=== PATIENT | male | born 1950 | race Hispanic/Latino ===

== ENCOUNTER → 2022-04-16 | Outpatient (CLI) | payer OTHER | LOC: MRI 07:47 | PROVIDERS: ATTEND Internal Medicine | DX: M75.111 Incomplete rotator cuff tear or rupture of right shoulder, not specified as traumatic (principal) ==

== ENCOUNTER 2022-05-13 09:24 | Inpatient (IN) | payer OTHER ==
[~2022-05-13] VITALS: Ht 157.5 cm; Wt 86.2 kg
[2022-05-13] MEDS ORDERED: FAMOTIDINE 20 MG/2 ML VIAL IV STA (09:45)
[2022-05-13] MEDS ORDERED: DIPHENHYDRAMINE HCL INJ 50 MG/ML VIAL IV ONE (09:45)
[2022-05-13] MEDS ORDERED: DEXAMETHASONE SOD PHOS 10 MG/1 ML VIAL IV ONE (09:45)
[2022-05-13] MEDS ORDERED: Doxycycline IV 100 MG in SODIUM CHLORIDE 0.9% 100 ML IV STA (09:54)
[2022-05-13 09:59] LABS: BASOPHILS % 0.1 % (0.0-1.0); EOSINOPHILS # (AUTO) 0.1 (0.0-0.4); EOSINOPHILS % 0.3 % (0.0-6.0); HEMATOCRIT 36.4 % (38.2-49.6); HEMOGLOBIN 11.9 g/dL (14.0-18.0); LYMPHOCYTES # (AUTO) 1.7 (1.0-3.2); LYMPHOCYTES % 11.4 % (18.0-39.1); MEAN CORPUSCULAR HEMOGLOBIN 33.5 pg (28-32); MEAN CORPUSCULAR HGB CONC 32.7 g/dL (31-35); MEAN CORPUSCULAR VOLUME 102.5 fL (81-99); MONOCYTES # (AUTO) 1.5 (0.2-0.8); MONOCYTES % 9.6 % (4.4-11.3); NEUTROPHILS # (AUTO) 11.8 (2.1-6.9); NEUTROPHILS % 77.5 % (38.7-80.0); PLATELET COUNT 281 x10e3/uL (140-360); RED BLOOD COUNT 3.55 x10e6/uL (4.3-5.7); RED CELL DISTRIBUTION WIDTH 13.5 % (11.7-14.4)
[2022-05-13] MEDS ORDERED: SODIUM CHLORIDE 0.9% 1000ML 1,000 ML IV SCH (10:00)
[2022-05-13] MEDS ORDERED: SODIUM CHLORIDE 0.9% 1000ML 1,000 ML ONE (10:11)
[2022-05-13 10:23] LABS: ALBUMIN 3.1 g/dL (3.5-5.0); ALBUMIN/GLOBULIN RATIO 0.8 (0.8-2.0); CALCIUM 9.4 mg/dL (8.4-10.2); CREATININE, SERUM 1.05 mg/dL (0.72-1.25)
[2022-05-13] MEDS ORDERED: Vancomycin IV 1 GM in SODIUM CHLORIDE 0.9% 250ML 250 ML IV ONE (10:30)
[2022-05-13] MEDS ORDERED: TRIAMTERENE-HCTZ1 EA PO (12:10)
[2022-05-13] MEDS ORDERED: MELOXICAM7.5 MG PO (12:10)
[2022-05-13] MEDS ORDERED: LOSARTAN POTAS100 MG PO (12:10)
[2022-05-13] MEDS ORDERED: METOPROLOL SUCC25 MG PO (12:10)
[2022-05-13] MEDS ORDERED: IOPAMIDOL 370 MG/ML 100 ML INFUS..BTL INJ ONE (12:18)
[2022-05-13] MEDS ORDERED: HYDRALAZINE HCL 20 MG/ML VIAL IV STA (12:34)
[2022-05-13] MEDS ORDERED: Morphine 4mg INJECTION 4 MG/ML INJ IV PRN ×2 (13:15→18:00)
[2022-05-13] MEDS ORDERED: ONDANSETRON HCL INJ 2MG/ML 2ML 2 MG/ML VIAL IV PRN (13:15)
[2022-05-13] MEDS: SODIUM CHLORIDE 0.9% 1000ML 1,000 ML IV SCH ×2 (13:27→16:37)
[2022-05-13 15:50] VITALS: BP 144/90
[2022-05-13] MEDS: ACYCLOVIR SODIUM 750 MG in SODIUM CHLORIDE 0.9% 250ML 250 ML IV SCH (16:37)
[2022-05-13 17:51] VITALS: BP 147/83
[2022-05-13] MEDS ORDERED: HYDROCODONE/APAP 10MG-325MG TAB PO PRN (18:00)
[2022-05-13] MEDS ORDERED: ACETAMINOPHEN 325 MG TAB PO PRN (18:00)
[2022-05-13] MEDS ORDERED: HYDRALAZINE HCL 20 MG/ML VIAL IV PRN (18:00)
[2022-05-13] MEDS: Clindamycin INJ 300 MG/50 ML 50 ML IV SCH (18:59)
[2022-05-13 20:00] VITALS: BP 122/69
[2022-05-14] VITALS (8 sets, daily range): BP systolic 107–159; BP diastolic 53–86
[2022-05-14] MEDS: Clindamycin INJ 300 MG/50 ML 50 ML IV SCH ×3 (02:43→17:00)
[2022-05-14] MEDS: ACYCLOVIR SODIUM 750 MG in SODIUM CHLORIDE 0.9% 250ML 250 ML IV SCH ×4 (02:47→20:50)
[2022-05-14 05:00] LABS: BASOPHILS # (AUTO) 0.1 (0.0-0.1); BASOPHILS % 0.3 % (0.0-1.0); EOSINOPHILS # (AUTO) 0.1 (0.0-0.4); EOSINOPHILS % 0.7 % (0.0-6.0); HEMATOCRIT 32.4 % (38.2-49.6); HEMOGLOBIN 11.4 g/dL (14.0-18.0); LYMPHOCYTES # (AUTO) 1.5 (1.0-3.2); LYMPHOCYTES % 10.3 % (18.0-39.1); MEAN CORPUSCULAR HEMOGLOBIN 34.1 pg (28-32); MEAN CORPUSCULAR HGB CONC 35.2 g/dL (31-35); MONOCYTES # (AUTO) 1.5 (0.2-0.8); MONOCYTES % 10.5 % (4.4-11.3); NEUTROPHILS # (AUTO) 11.2 (2.1-6.9); NEUTROPHILS % 77.2 % (38.7-80.0); PLATELET COUNT 248 x10e3/uL (140-360); RED BLOOD COUNT 3.34 x10e6/uL (4.3-5.7); RED CELL DISTRIBUTION WIDTH 14.1 % (11.7-14.4)
[2022-05-14 05:18] LABS: ANION GAP 13.6 mmol/L (8-16); CALCIUM 8.5 mg/dL (8.4-10.2); CREATININE, SERUM 0.85 mg/dL (0.72-1.25); POTASSIUM 3.6 mmol/L (3.5-5.1)
[2022-05-14] MEDS: METOPROLOL SUCCINATE 25 MG TAB XL PO SCH (09:42)
[2022-05-14] MEDS: SENNA-S TABLET PO SCH ×2 (09:42→16:52)
[2022-05-14] MEDS: LACTOBACILLUS ACIDOPHILUS CAPSULE PO SCH ×2 (09:43→16:52)
[2022-05-14] MEDS ORDERED: ONDANSETRON HCL 4 MG ORAL DISINTEGRATING TAB PO PRN (14:00)
[2022-05-15] VITALS (8 sets, daily range): BP systolic 136–159; BP diastolic 68–93
[2022-05-15] MEDS: Clindamycin INJ 300 MG/50 ML 50 ML IV SCH ×2 (02:12→09:53)
[2022-05-15 04:56] LABS: BASOPHILS % 0.2 % (0.0-1.0); EOSINOPHILS # (AUTO) 0.1 (0.0-0.4); EOSINOPHILS % 0.5 % (0.0-6.0); HEMATOCRIT 33.8 % (38.2-49.6); HEMOGLOBIN 11.2 g/dL (14.0-18.0); LYMPHOCYTES # (AUTO) 1.1 (1.0-3.2); LYMPHOCYTES % 8.5 % (18.0-39.1); MEAN CORPUSCULAR HEMOGLOBIN 33.2 pg (28-32); MEAN CORPUSCULAR HGB CONC 33.1 g/dL (31-35); MEAN CORPUSCULAR VOLUME 100.3 fL (81-99); MONOCYTES # (AUTO) 1.4 (0.2-0.8); MONOCYTES % 11.1 % (4.4-11.3); NEUTROPHILS # (AUTO) 9.9 (2.1-6.9); NEUTROPHILS % 78.9 % (38.7-80.0); PLATELET COUNT 256 x10e3/uL (140-360); RED BLOOD COUNT 3.37 x10e6/uL (4.3-5.7); RED CELL DISTRIBUTION WIDTH 13.4 % (11.7-14.4)
[2022-05-15 05:20] LABS: ANION GAP 15.3 mmol/L (8-16); CALCIUM 8.7 mg/dL (8.4-10.2); CREATININE, SERUM 0.76 mg/dL (0.72-1.25); POTASSIUM 3.3 mmol/L (3.5-5.1)
[2022-05-15] MEDS ORDERED: KETOROLAC TROMETHAMINE 30 MG/ML VIAL IV PRN (09:15)
[2022-05-15] MEDS ORDERED: PANTOPRAZOLE SOD 40 MG TABEC PO ONE (09:45)
[2022-05-15] MEDS ORDERED: POTASSIUM CHLORIDE 10MEQ EA PO ONE (09:45)
[2022-05-15] MEDS: SENNA-S TABLET PO SCH ×2 (09:48→17:42)
[2022-05-15] MEDS: LACTOBACILLUS ACIDOPHILUS CAPSULE PO SCH ×2 (09:48→17:42)
[2022-05-15] MEDS: METOPROLOL SUCCINATE 25 MG TAB XL PO SCH (09:49)
[2022-05-15] MEDS: CELECOXIB 100 MG CAP PO SCH ×2 (09:52→17:42)
[2022-05-15] MEDS: ACYCLOVIR SODIUM 750 MG in SODIUM CHLORIDE 0.9% 250ML 250 ML IV SCH (09:53)
[2022-05-15] MEDS: Vancomycin IV 1 GM in SODIUM CHLORIDE 0.9% 250ML 250 ML IV SCH (13:55)
[2022-05-15] MEDS: MEROPENEM 1 GM in SODIUM CHLORIDE 0.9% 100 ML IV SCH ×2 (13:56→22:17)
[2022-05-16] VITALS (7 sets, daily range): BP systolic 137–158; BP diastolic 73–83
[2022-05-16] MEDS: Vancomycin IV 1 GM in SODIUM CHLORIDE 0.9% 250ML 250 ML IV SCH ×2 (01:31→13:36)
[2022-05-16] MEDS: MEROPENEM 1 GM in SODIUM CHLORIDE 0.9% 100 ML IV SCH ×3 (05:28→21:03)
[2022-05-16 05:48] LABS: BASOPHILS % 0.3 % (0.0-1.0); EOSINOPHILS # (AUTO) 0.2 (0.0-0.4); EOSINOPHILS % 2.4 % (0.0-6.0); HEMATOCRIT 34.7 % (38.2-49.6); HEMOGLOBIN 11.2 g/dL (14.0-18.0); LYMPHOCYTES # (AUTO) 0.8 (1.0-3.2); LYMPHOCYTES % 9.1 % (18.0-39.1); MEAN CORPUSCULAR HGB CONC 32.3 g/dL (31-35); MEAN CORPUSCULAR VOLUME 102.4 fL (81-99); MONOCYTES # (AUTO) 0.9 (0.2-0.8); MONOCYTES % 9.8 % (4.4-11.3); NEUTROPHILS # (AUTO) 6.7 (2.1-6.9); NEUTROPHILS % 77.3 % (38.7-80.0); PLATELET COUNT 241 x10e3/uL (140-360); RED BLOOD COUNT 3.39 x10e6/uL (4.3-5.7); RED CELL DISTRIBUTION WIDTH 13.9 % (11.7-14.4)
[2022-05-16] MEDS: PANTOPRAZOLE SOD 40 MG TABEC PO SCH (09:18)
[2022-05-16] MEDS: LACTOBACILLUS ACIDOPHILUS CAPSULE PO SCH ×2 (09:19→16:43)
[2022-05-16] MEDS: CELECOXIB 100 MG CAP PO SCH ×2 (09:19→16:43)
[2022-05-16] MEDS: SENNA-S TABLET PO SCH ×2 (09:19→16:43)
[2022-05-16] MEDS: METOPROLOL SUCCINATE 25 MG TAB XL PO SCH (09:21)
[2022-05-16] MEDS ORDERED: POTASSIUM CHLORIDE 10MEQ EA PO ONE ×2 (10:45→14:00)
[2022-05-17] VITALS (7 sets, daily range): BP systolic 143–156; BP diastolic 62–90
[2022-05-17] MEDS: Vancomycin IV 1 GM in SODIUM CHLORIDE 0.9% 250ML 250 ML IV SCH ×2 (02:18→13:30)
[2022-05-17] MEDS: MEROPENEM 1 GM in SODIUM CHLORIDE 0.9% 100 ML IV SCH ×3 (05:13→20:12)
[2022-05-17] MEDS: METOPROLOL SUCCINATE 25 MG TAB XL PO SCH (08:37)
[2022-05-17] MEDS: LACTOBACILLUS ACIDOPHILUS CAPSULE PO SCH ×2 (08:37→16:36)
[2022-05-17] MEDS: CELECOXIB 100 MG CAP PO SCH ×2 (08:37→16:36)
[2022-05-17] MEDS: PANTOPRAZOLE SOD 40 MG TABEC PO SCH (08:37)
[2022-05-17] MEDS: SENNA-S TABLET PO SCH ×2 (08:37→16:36)
[2022-05-18] VITALS (7 sets, daily range): BP systolic 148–178; BP diastolic 78–90
[2022-05-18] MEDS: Vancomycin IV 1 GM in SODIUM CHLORIDE 0.9% 250ML 250 ML IV SCH (01:16)
[2022-05-18] MEDS: MEROPENEM 1 GM in SODIUM CHLORIDE 0.9% 100 ML IV SCH ×3 (05:27→21:05)
[2022-05-18 05:42] LABS: BASOPHILS % 0.1 % (0.0-1.0); EOSINOPHILS # (AUTO) 0.1 (0.0-0.4); EOSINOPHILS % 0.6 % (0.0-6.0); HEMATOCRIT 32.8 % (38.2-49.6); HEMOGLOBIN 10.7 g/dL (14.0-18.0); LYMPHOCYTES # (AUTO) 0.8 (1.0-3.2); LYMPHOCYTES % 7.5 % (18.0-39.1); MEAN CORPUSCULAR HEMOGLOBIN 32.8 pg (28-32); MEAN CORPUSCULAR HGB CONC 32.6 g/dL (31-35); MEAN CORPUSCULAR VOLUME 100.6 fL (81-99); MONOCYTES % 9.2 % (4.4-11.3); NEUTROPHILS # (AUTO) 9.1 (2.1-6.9); NEUTROPHILS % 81.6 % (38.7-80.0); PLATELET COUNT 321 x10e3/uL (140-360); RED BLOOD COUNT 3.26 x10e6/uL (4.3-5.7); RED CELL DISTRIBUTION WIDTH 13.2 % (11.7-14.4)
[2022-05-18 06:02] LABS: ANION GAP 15.3 mmol/L (8-16); CALCIUM 8.9 mg/dL (8.4-10.2); CREATININE, SERUM 0.83 mg/dL (0.72-1.25); POTASSIUM 4.3 mmol/L (3.5-5.1)
[2022-05-18] MEDS: CELECOXIB 100 MG CAP PO SCH ×2 (07:53→16:00)
[2022-05-18] MEDS: SENNA-S TABLET PO SCH ×2 (07:53→16:00)
[2022-05-18] MEDS: LACTOBACILLUS ACIDOPHILUS CAPSULE PO SCH ×2 (07:53→16:00)
[2022-05-18] MEDS: PANTOPRAZOLE SOD 40 MG TABEC PO SCH (07:53)
[2022-05-18] MEDS: METOPROLOL SUCCINATE 25 MG TAB XL PO SCH (08:08)
[2022-05-18] MEDS ORDERED: KETOROLAC TROMETHAMINE 30 MG/ML VIAL IV PRN (09:45)
[2022-05-18] MEDS ORDERED: HYDROCODONE/APAP 10MG-325MG TAB PO PRN (10:00)
[2022-05-18] MEDS: Vancomycin IV 1.25 GM in SODIUM CHLORIDE 0.9% 250ML 250 ML IV SCH (17:36)
[2022-05-18] MEDS: NIFEDIPINE CR 30 MG TAB PO ONE ×2 (18:00→18:03)
[2022-05-18] MEDS ORDERED: NIFEDIPINE CR 30 MG TAB PO ONE (18:00)
[2022-05-19] VITALS (8 sets, daily range): BP systolic 118–161; BP diastolic 69–82
[2022-05-19] MEDS: MEROPENEM 1 GM in SODIUM CHLORIDE 0.9% 100 ML IV SCH ×3 (05:18→21:18)
[2022-05-19] MEDS: Vancomycin IV 1.25 GM in SODIUM CHLORIDE 0.9% 250ML 250 ML IV SCH ×2 (05:21→17:08)
[2022-05-19 06:16] LABS: BASOPHILS % 0.4 % (0.0-1.0); EOSINOPHILS # (AUTO) 0.4 (0.0-0.4); EOSINOPHILS % 3.4 % (0.0-6.0); HEMATOCRIT 33.2 % (38.2-49.6); HEMOGLOBIN 11.3 g/dL (14.0-18.0); LYMPHOCYTES # (AUTO) 1.2 (1.0-3.2); LYMPHOCYTES % 11.4 % (18.0-39.1); MEAN CORPUSCULAR HEMOGLOBIN 33.1 pg (28-32); MEAN CORPUSCULAR VOLUME 97.4 fL (81-99); MONOCYTES # (AUTO) 1.2 (0.2-0.8); MONOCYTES % 11.1 % (4.4-11.3); NEUTROPHILS # (AUTO) 7.3 (2.1-6.9); NEUTROPHILS % 70.1 % (38.7-80.0); PLATELET COUNT 394 x10e3/uL (140-360); RED BLOOD COUNT 3.41 x10e6/uL (4.3-5.7); RED CELL DISTRIBUTION WIDTH 13.7 % (11.7-14.4)
[2022-05-19] MEDS: NIFEDIPINE CR 30 MG TAB PO SCH (06:20)
[2022-05-19] MEDS: CELECOXIB 100 MG CAP PO SCH ×2 (08:07→16:14)
[2022-05-19] MEDS: PANTOPRAZOLE SOD 40 MG TABEC PO SCH (08:08)
[2022-05-19] MEDS: LACTOBACILLUS ACIDOPHILUS CAPSULE PO SCH ×2 (08:08→16:14)
[2022-05-19] MEDS: METOPROLOL SUCCINATE 25 MG TAB XL PO SCH (08:09)
[2022-05-19] MEDS: SENNA-S TABLET PO SCH ×2 (08:09→16:14)
[2022-05-20] VITALS (7 sets, daily range): BP systolic 134–157; BP diastolic 73–84
[2022-05-20] MEDS: Vancomycin IV 1.25 GM in SODIUM CHLORIDE 0.9% 250ML 250 ML IV SCH (04:36)
[2022-05-20] MEDS: MEROPENEM 1 GM in SODIUM CHLORIDE 0.9% 100 ML IV SCH ×3 (06:20→21:41)
[2022-05-20] MEDS: NIFEDIPINE CR 30 MG TAB PO SCH (06:20)
[2022-05-20] MEDS: METOPROLOL SUCCINATE 25 MG TAB XL PO SCH (08:33)
[2022-05-20] MEDS: SENNA-S TABLET PO SCH ×2 (08:33→16:13)
[2022-05-20] MEDS: CELECOXIB 100 MG CAP PO SCH ×2 (08:33→16:13)
[2022-05-20] MEDS: PANTOPRAZOLE SOD 40 MG TABEC PO SCH (08:33)
[2022-05-20] MEDS: LACTOBACILLUS ACIDOPHILUS CAPSULE PO SCH ×2 (08:33→16:13)
[2022-05-20] MEDS ORDERED: DOXYCYCLINE HYCLATE TABLET 100 MG TAB PO ONE (11:45)
[2022-05-20] MEDS ORDERED: CIPROFLOXACIN 500 MG TAB PO SCH (11:45)
[2022-05-20] MEDS: TRIAMTERENE/HCTZ 37.5-25 MG TAB PO SCH (13:00)
[2022-05-21 00:58] VITALS: BP 144/81
[2022-05-21 05:10] VITALS: BP 151/86
[2022-05-21] MEDS: NIFEDIPINE CR 30 MG TAB PO SCH (05:21)
[2022-05-21] MEDS: MEROPENEM 1 GM in SODIUM CHLORIDE 0.9% 100 ML IV SCH (05:21)
[2022-05-21 08:00] VITALS: BP 151/82
[2022-05-21 08:13] VITALS: BP 151/82
[2022-05-21] MEDS: PANTOPRAZOLE SOD 40 MG TABEC PO SCH (08:29)
[2022-05-21] MEDS: CELECOXIB 100 MG CAP PO SCH (08:29)
[2022-05-21] MEDS: LACTOBACILLUS ACIDOPHILUS CAPSULE PO SCH (08:29)
[2022-05-21] MEDS: TRIAMTERENE/HCTZ 37.5-25 MG TAB PO SCH (08:29)
[2022-05-21] MEDS: METOPROLOL SUCCINATE 25 MG TAB XL PO SCH (08:30)
[2022-05-21] MEDS: SENNA-S TABLET PO SCH (08:30)
[2022-05-21 08:50] LABS: BASOPHILS # (AUTO) 0.1 (0.0-0.1); BASOPHILS % 0.6 % (0.0-1.0); EOSINOPHILS # (AUTO) 0.3 (0.0-0.4); EOSINOPHILS % 2.6 % (0.0-6.0); HEMATOCRIT 33.1 % (38.2-49.6); HEMOGLOBIN 10.5 g/dL (14.0-18.0); LYMPHOCYTES # (AUTO) 1.1 (1.0-3.2); LYMPHOCYTES % 11.3 % (18.0-39.1); MEAN CORPUSCULAR HEMOGLOBIN 32.6 pg (28-32); MEAN CORPUSCULAR HGB CONC 31.7 g/dL (31-35); MEAN CORPUSCULAR VOLUME 102.8 fL (81-99); MONOCYTES # (AUTO) 0.8 (0.2-0.8); MONOCYTES % 8.5 % (4.4-11.3); NEUTROPHILS # (AUTO) 7.2 (2.1-6.9); NEUTROPHILS % 74.3 % (38.7-80.0); PLATELET COUNT 389 x10e3/uL (140-360); RED BLOOD COUNT 3.22 x10e6/uL (4.3-5.7); RED CELL DISTRIBUTION WIDTH 13.4 % (11.7-14.4)
[2022-05-21 09:39] LABS: ANION GAP 15.8 mmol/L (8-16); CALCIUM 8.6 mg/dL (8.4-10.2); CREATININE, SERUM 0.8 mg/dL (0.72-1.25); POTASSIUM 4.8 mmol/L (3.5-5.1)
[2022-05-21] MEDS ORDERED: CIPRO500 MG PO (10:20)
[2022-05-21] MEDS ORDERED: DOXYCYCLINE HY100 MG PO (10:20)
[2022-05-21] MEDS ORDERED: tylenol #3 PO (10:21)
== END 2022-05-21 11:16 | disposition home or self-care (01) | DRG 603 ==
LOC: ER 09:29 → ERHOLD 13:09 → MED/SURG3 14:36
PROVIDERS: ADMIT Internal Medicine; ATTEND Internal Medicine
DX: L03.113 Cellulitis of right upper limb (principal); M65.831 Other synovitis and tenosynovitis, right forearm; I10 Essential (primary) hypertension; E11.9 Type 2 diabetes mellitus without complications; E78.5 Hyperlipidemia, unspecified; E66.9 Obesity, unspecified; Z68.34 Body mass index [BMI] 34.0-34.9, adult; Z20.822 Contact with and (suspected) exposure to COVID-19
CPT/HCPCS: 0223U; 36415; 73201; 80048; 80053; 80202; 82948; 83605; 85025; 85651; 86140; 87040; 93971; 94799; 99284; J0360; J0692; J0696; J2185; J2270; J3370; J7030; J7050; Q9967

== ENCOUNTER 2024-06-03 11:19 | Inpatient (IN) | payer MEDICARE ==
[~2024-06-03] VITALS: Ht 157.5 cm; Wt 91.6 kg
[~2024-06-03 11:19] MED LIST: CIPRO500 MG PO; DOXYCYCLINE HY100 MG PO; LOSARTAN POTAS100 MG PO; MELOXICAM7.5 MG PO; METOPROLOL SUCC25 MG PO; TRIAMTERENE-HCTZ1 EA PO; tylenol #3 PO
[2024-06-03 11:24] VITALS: TEMP 98.7
[2024-06-03 13:40] LABS: BASOPHILS % 0.3 % (0.0-1.0); EOSINOPHILS % 0.1 % (0.0-6.0); HEMATOCRIT 43.5 % (38.2-49.6); HEMOGLOBIN 14.2 g/dL (14.0-18.0); LYMPHOCYTES # (AUTO) 0.5 (1.0-3.2); LYMPHOCYTES % 3.4 % (18.0-39.1); MEAN CORPUSCULAR HGB CONC 32.6 g/dL (31-35); MONOCYTES # (AUTO) 0.8 (0.2-0.8); MONOCYTES % 5.8 % (4.4-11.3); NEUTROPHILS # (AUTO) 12.8 (2.1-6.9); NEUTROPHILS % 88.8 % (38.7-80.0); PLATELET COUNT 288 x10e3/uL (140-360); RED BLOOD COUNT 4.44 x10e6/uL (4.3-5.7); RED CELL DISTRIBUTION WIDTH 14.6 % (11.7-14.4); WHITE BLOOD COUNT 14.38 x10e3/uL (4.8-10.8)
[2024-06-03] MEDS ORDERED: ONDANSETRON HCL INJ 2MG/ML 2ML 2 MG/ML VIAL IV PRN (14:00)
[2024-06-03] MEDS ORDERED: Morphine 2mg Syringe 2 MG/ML SYR IV PRN (14:00)
[2024-06-03 14:02] LABS: INR 0.87; PROTHROMBIN TIME 12.4 seconds (11.9-14.5)
[2024-06-03 14:03] LABS: PARTIAL THROMBOPLASTIN TIME 27.9 seconds (23.8-35.5)
[2024-06-03 14:10] LABS: ALBUMIN 3.6 g/dL (3.5-5.0); ALBUMIN/GLOBULIN RATIO 1.1 (0.8-2.0); ANION GAP 16.5 mmol/L (8-16); BILIRUBIN,TOTAL 0.5 mg/dL (0.2-1.2); CALCIUM 9.7 mg/dL (8.4-10.2); CREATININE, SERUM 0.73 mg/dL (0.72-1.25); POTASSIUM 4.5 mmol/L (3.5-5.1); TOTAL PROTEIN 6.9 g/dL (6.5-8.1)
[2024-06-03 14:15] LABS: TROPONIN I 0.011 ng/mL (0-0.300)
[2024-06-03 15:48] LABS: CLARITY,URINE CLEAR (CLEAR); COLOR,URINE YELLOW (YELLOW)
[2024-06-03 15:49] LABS: BILIRUBIN,URINE NEGATIVE (NEGATIVE); GLUCOSE, URINE 500 (NEGATIVE); KETONES,URINE NEGATIVE (NEGATIVE); LEUKOCYTE ESTERASE ,URINE SMALL (NEGATIVE); NITRITE,URINE NEGATIVE (NEGATIVE); PH,URINE 7.5 (5 - 7); PROTEIN,URINE DIPSTICK NEGATIVE (NEGATIVE); URINE UROBILINOGEN 0.2 mg/dL (0.2 - 1)
[2024-06-03 15:51] LABS: BACTERIA,URINE FEW /HPF; EPITHELIAL CELLS,URINE FEW /LPF; RBC,URINE 0-5 /HPF (0-5); WBC,URINE (MAN) 0-5 /HPF (0-5)
[2024-06-03 16:12] VITALS: PULSE 79; RESP 16
[2024-06-03 17:19] VITALS: BP 152/90; PULSE 68; RESP 16; TEMP 97.8; O2SAT 97
[2024-06-03 18:29] VITALS: BP 152/90; PULSE 68; RESP 16; TEMP 97.8; O2SAT 97
[2024-06-03] MEDS: SODIUM CHLORIDE 0.9% 1000ML 1,000 ML IV ONE (20:05)
[2024-06-03 20:08] VITALS: BP 170/88; PULSE 66; RESP 21; TEMP 98.4; O2SAT 97
[2024-06-03] MEDS ORDERED: METOPROLOL SUCC50 MG PO (20:15)
[2024-06-03] MEDS ORDERED: JARDIANCE10 MG PO (20:15)
[2024-06-03] MEDS ORDERED: ENTRESTO 49 MG1 EACH PO (20:15)
[2024-06-03] MEDS ORDERED: ATORVASTATIN CA40 MG PO (20:15)
[2024-06-03] MEDS ORDERED: FINASTERIDE5 MG PO (20:15)
[2024-06-03] MEDS ORDERED: TAMSULOSIN PO (20:15)
[2024-06-03] MEDS ORDERED: prednisolone OS (20:17)
[2024-06-03 21:15] LABS: TROPONIN I 0.011 ng/mL (0-0.300)
[2024-06-03 21:28] VITALS: BP 170/88; PULSE 66; RESP 21; TEMP 98.4; O2SAT 97
[2024-06-04] VITALS (10 sets, daily range): BP systolic 134–157; BP diastolic 74–90; PULSE 58–74; RESP 15–20; TEMP 97.5–98.8; O2SAT 95–97
[2024-06-04] MEDS ORDERED: ROCURONIUM BROMIDE 1 ML IV ONE (07:25)
[2024-06-04] MEDS ORDERED: LIDOCAINE HCL 2% LOCAL INJ 5 ML SDV VIAL INJ ONE (07:25)
[2024-06-04] MEDS ORDERED: FENTANYL CITRATE/PF 100MCG/2 ML INJ ONE (07:25)
[2024-06-04] MEDS ORDERED: MIDAZOLAM HCL 2 MG/2 ML VIAL ONE (07:27)
[2024-06-04] MEDS ORDERED: PROPOFOL IV EMULSION 10 MG/ML 20 ML VIAL ONE (07:27)
[2024-06-04] MEDS ORDERED: ONDANSETRON HCL INJ 2MG/ML 2ML 2 MG/ML VIAL ONE (07:47)
[2024-06-04] MEDS ORDERED: METOCLOPRAMIDE HCL 10 MG/2ML VIAL ONE (07:47)
[2024-06-04] MEDS ORDERED: DEXAMETHASONE SOD PHOS INJ 4 MG/ML SDV ONE (07:47)
[2024-06-04] MEDS ORDERED: KETOROLAC TROMETHAMINE 30 MG/ML VIAL ONE (07:47)
[2024-06-04] MEDS ORDERED: EPHEDRINE SULFATE INJ 50 MG/ML VIAL ONE (07:54)
[2024-06-04] MEDS ORDERED: SUCCINYLCHOLINE CHLORIDE 20 MG/ML 10ML VIAL ONE (07:58)
[2024-06-04] MEDS ORDERED: BUPIVACAINE/EPI 0.5% 30ML SDV-MPF INJ ONE (07:59)
[2024-06-04] MEDS ORDERED: HYDROMORPHONE 2MG/ML ONE (08:45)
[2024-06-04] MEDS ORDERED: ACETAMINOPHEN 325 MG TAB PO PRN (09:00)
[2024-06-04] MEDS ORDERED: HYDRALAZINE HCL 20 MG/ML VIAL IV PRN (09:00)
[2024-06-04] MEDS: EMPAGLIFLOZIN 10 MG TABLET PO SCH (12:06)
[2024-06-04] MEDS: METOPROLOL SUCCINATE 50 MG TAB XL PO SCH (12:06)
[2024-06-04] MEDS: FINASTERIDE 5 MG TAB PO SCH (12:06)
[2024-06-04 13:33] LABS: BASOPHILS % 0.1 % (0.0-1.0); HEMATOCRIT 39.2 % (38.2-49.6); HEMOGLOBIN 13.1 g/dL (14.0-18.0); LYMPHOCYTES # (AUTO) 0.4 (1.0-3.2); LYMPHOCYTES % 2.3 % (18.0-39.1); MEAN CORPUSCULAR HEMOGLOBIN 32.7 pg (28-32); MEAN CORPUSCULAR HGB CONC 33.4 g/dL (31-35); MEAN CORPUSCULAR VOLUME 97.8 fL (81-99); MONOCYTES # (AUTO) 0.7 (0.2-0.8); MONOCYTES % 4.5 % (4.4-11.3); NEUTROPHILS % 91.9 % (38.7-80.0); PLATELET COUNT 221 x10e3/uL (140-360); RED BLOOD COUNT 4.01 x10e6/uL (4.3-5.7); RED CELL DISTRIBUTION WIDTH 14.8 % (11.7-14.4); WHITE BLOOD COUNT 16.35 x10e3/uL (4.8-10.8)
[2024-06-04] MEDS: CEFAZOLIN SODIUM 2 GM in SODIUM CHLORIDE 0.9% 100 ML IV SCH (13:37)
[2024-06-04 13:49] LABS: ANION GAP 15.6 mmol/L (8-16); CALCIUM 9.2 mg/dL (8.4-10.2); CREATININE, SERUM 0.87 mg/dL (0.72-1.25); POTASSIUM 4.6 mmol/L (3.5-5.1)
[2024-06-04 14:10] LABS: TROPONIN I 0.017 ng/mL (0-0.300)
[2024-06-04] MEDS: ENOXAPARIN SOD INJ 40 MG/0.4 ML SYR SC SCH (17:31)
[2024-06-04] MEDS: ATORVASTATIN 40 MG TAB PO SCH (21:04)
[2024-06-05] VITALS (9 sets, daily range): BP systolic 107–166; BP diastolic 65–91; PULSE 57–67; RESP 18; TEMP 97.5–98.5; O2SAT 92–97
[2024-06-05 05:25] LABS: BASOPHILS % 0.3 % (0.0-1.0); EOSINOPHILS % 0.4 % (0.0-6.0); HEMOGLOBIN 11.4 g/dL (14.0-18.0); LYMPHOCYTES % 9.1 % (18.0-39.1); MEAN CORPUSCULAR HEMOGLOBIN 32.3 pg (28-32); MEAN CORPUSCULAR HGB CONC 33.5 g/dL (31-35); MEAN CORPUSCULAR VOLUME 96.3 fL (81-99); MONOCYTES # (AUTO) 1.1 (0.2-0.8); MONOCYTES % 10.4 % (4.4-11.3); NEUTROPHILS # (AUTO) 8.4 (2.1-6.9); NEUTROPHILS % 78.4 % (38.7-80.0); PLATELET COUNT 220 x10e3/uL (140-360); RED BLOOD COUNT 3.53 x10e6/uL (4.3-5.7); RED CELL DISTRIBUTION WIDTH 14.9 % (11.7-14.4); WHITE BLOOD COUNT 10.66 x10e3/uL (4.8-10.8)
[2024-06-05 05:52] LABS: ANION GAP 13.1 mmol/L (8-16); CREATININE, SERUM 0.71 mg/dL (0.72-1.25); POTASSIUM 4.1 mmol/L (3.5-5.1)
[2024-06-05 06:06] LABS: MAGNESIUM 2.1 MG/DL (1.3-2.1); PHOSPHORUS 2.9 MG/DL (2.3-4.7)
[2024-06-05] MEDS: SACUBITRIL49MG/VALSARTAN51MG 1 EACH TABLET PO SCH (09:58)
[2024-06-05] MEDS: PANTOPRAZOLE SOD 40 MG TABEC PO SCH (09:58)
[2024-06-05] MEDS: FUROSEMIDE INJ 10 MG/ML 4 ML VIAL IV ONE (09:58)
[2024-06-05] MEDS: Morphine 4mg INJECTION 4 MG/ML INJ IV PRN (11:07)
[2024-06-06] VITALS (10 sets, daily range): BP systolic 109–152; BP diastolic 62–87; PULSE 56–71; RESP 18–20; TEMP 97.7–98.3; O2SAT 93–99
[2024-06-06 05:10] LABS: BASOPHILS % 0.3 % (0.0-1.0); EOSINOPHILS % 0.3 % (0.0-6.0); HEMATOCRIT 35.3 % (38.2-49.6); HEMOGLOBIN 11.7 g/dL (14.0-18.0); LYMPHOCYTES # (AUTO) 0.8 (1.0-3.2); LYMPHOCYTES % 6.7 % (18.0-39.1); MEAN CORPUSCULAR HEMOGLOBIN 32.3 pg (28-32); MEAN CORPUSCULAR HGB CONC 33.1 g/dL (31-35); MEAN CORPUSCULAR VOLUME 97.5 fL (81-99); MONOCYTES # (AUTO) 0.9 (0.2-0.8); MONOCYTES % 7.6 % (4.4-11.3); NEUTROPHILS # (AUTO) 9.6 (2.1-6.9); NEUTROPHILS % 83.2 % (38.7-80.0); PLATELET COUNT 213 x10e3/uL (140-360); RED BLOOD COUNT 3.62 x10e6/uL (4.3-5.7); RED CELL DISTRIBUTION WIDTH 14.5 % (11.7-14.4); WHITE BLOOD COUNT 11.56 x10e3/uL (4.8-10.8)
[2024-06-06 05:30] LABS: ANION GAP 13.9 mmol/L (8-16); CALCIUM 8.8 mg/dL (8.4-10.2); CREATININE, SERUM 0.73 mg/dL (0.72-1.25); POTASSIUM 3.9 mmol/L (3.5-5.1)
[2024-06-06] MEDS: HYDROCODONE/APAP 10MG-325MG TAB PO PRN (09:40)
[2024-06-06] MEDS ORDERED: MAGNESIUM HYDROXIDE 30 ML UDC PO PRN (19:45)
[2024-06-06] MEDS: BISACODYL 10 MG SUPP PR ONE (21:57)
[2024-06-07] VITALS (8 sets, daily range): BP systolic 111–158; BP diastolic 62–86; PULSE 60–74; RESP 18–22; TEMP 97.5–98.3; O2SAT 93–98
[2024-06-07] MEDS ORDERED: BISACODYL 5 MG TAB EC PO PRN (07:45)
[2024-06-07] MEDS ORDERED: ONDANSETRON HCL 4 MG ORAL DISINTEGRATING TAB PO PRN (07:45)
[2024-06-07] MEDS ORDERED: HYDRALAZINE HCL 25 MG TAB PO PRN (07:45)
[2024-06-07] MEDS: SENNA-S TABLET PO SCH (09:01)
[2024-06-07] MEDS: PREGABALIN 25 MG CAP PO SCH (09:02)
[2024-06-08] VITALS (10 sets, daily range): BP systolic 105–151; BP diastolic 62–84; PULSE 61–78; RESP 18–20; TEMP 97.2–98.6; O2SAT 96–100
[2024-06-09] VITALS (9 sets, daily range): BP systolic 101–171; BP diastolic 62–89; PULSE 62–83; RESP 18–20; TEMP 97.1–98.6; O2SAT 95–100
[2024-06-09 05:40] LABS: BASOPHILS % 0.5 % (0.0-1.0); EOSINOPHILS # (AUTO) 0.1 (0.0-0.4); EOSINOPHILS % 1.2 % (0.0-6.0); HEMATOCRIT 34.1 % (38.2-49.6); HEMOGLOBIN 10.9 g/dL (14.0-18.0); LYMPHOCYTES # (AUTO) 1.3 (1.0-3.2); LYMPHOCYTES % 14.8 % (18.0-39.1); MEAN CORPUSCULAR HEMOGLOBIN 31.9 pg (28-32); MEAN CORPUSCULAR VOLUME 99.7 fL (81-99); MONOCYTES # (AUTO) 0.7 (0.2-0.8); MONOCYTES % 8.4 % (4.4-11.3); NEUTROPHILS # (AUTO) 5.9 (2.1-6.9); NEUTROPHILS % 69.4 % (38.7-80.0); PLATELET COUNT 305 x10e3/uL (140-360); RED BLOOD COUNT 3.42 x10e6/uL (4.3-5.7); RED CELL DISTRIBUTION WIDTH 14.5 % (11.7-14.4); WHITE BLOOD COUNT 8.43 x10e3/uL (4.8-10.8)
[2024-06-09 06:04] LABS: ANION GAP 11.9 mmol/L (8-16); CALCIUM 9.1 mg/dL (8.4-10.2); CREATININE, SERUM 0.83 mg/dL (0.72-1.25); POTASSIUM 3.9 mmol/L (3.5-5.1)
[2024-06-10] VITALS: BP 133/85; PULSE 64; RESP 19; TEMP 96.5; O2SAT 96
[2024-06-10 04:00] VITALS: BP 185/93; PULSE 62; RESP 20; TEMP 97.3; O2SAT 95
[2024-06-10 06:35] VITALS: PULSE 74; RESP 20; O2SAT 96
[2024-06-10] MEDS ORDERED: ULTRAM 50MG50 MG PO (08:24)
[2024-06-10] MEDS ORDERED: ASPIRIN81 MG PO (08:24)
[2024-06-10] MEDS ORDERED: SENNA S TABLET1 EACH PO (08:24)
[2024-06-10] MEDS ORDERED: TYLENOL325 MG PO (08:24)
[2024-06-10] MEDS ORDERED: PERCOCET 5-3251 EACH PO (08:24)
[2024-06-10 08:38] VITALS: BP 143/79; PULSE 63; RESP 18; TEMP 97.6; O2SAT 98
[2024-06-10 08:45] VITALS: BP 143/79; PULSE 63; RESP 18; TEMP 97.6; O2SAT 98
[2024-06-10 11:50] VITALS: BP 149/93; PULSE 64; RESP 20; TEMP 98.1; O2SAT 98
== END 2024-06-10 12:45 | disposition home or self-care (01) | DRG 481 ==
LOC: ER 11:25 → ERHOLD 13:53 → MED/SURG 17:01 → MED/SURG2 06-07 21:21
PROVIDERS: ADMIT Internal Medicine; ATTEND Internal Medicine
PROC: 0QH636Z Insertion of Intramedullary Internal Fixation Device into Right Upper Femur, Percutaneous Approach (ICD-10-PCS; principal; 2024-06-04 07:36)
DX: S72.144A Nondisplaced intertrochanteric fracture of right femur, initial encounter for closed fracture (principal); E87.1 Hypo-osmolality and hyponatremia; I11.0 Hypertensive heart disease with heart failure; I50.9 Heart failure, unspecified; D64.9 Anemia, unspecified; R33.9 Retention of urine, unspecified; E11.9 Type 2 diabetes mellitus without complications; M17.11 Unilateral primary osteoarthritis, right knee; M25.461 Effusion, right knee; Z79.84 Long term (current) use of oral hypoglycemic drugs; W01.0XXA Fall on same level from slipping, tripping and stumbling without subsequent striking against object, initial encounter; Y92.009 Unspecified place in unspecified non-institutional (private) residence as the place of occurrence of the external cause
CPT/HCPCS: 36415; 70450; 71045; 72125; 72170; 72192; 76000; 80048; 80053; 81001; 82550; 82948; 83036; 83735; 84100; 84484; 85025; 85610; 85730; 86850; 86900; 93005; 94799; 99252; 99284; C1713; J0330; J0690; J1100; J1650; J1885; J1940; J2003; J2250; J2270; J2405; J2470; J2765; J7030; J7050

== ENCOUNTER 2024-06-22 17:06 | Emergency (ER) | payer MEDICARE ==
[~2024-06-22] VITALS: Ht 172.7 cm; Wt 91.2 kg
[~2024-06-22 17:06] MED LIST changes: +ASPIRIN81 MG PO; +ATORVASTATIN CA40 MG PO; +ENTRESTO 49 MG1 EACH PO; +FINASTERIDE5 MG PO; +JARDIANCE10 MG PO; +METOPROLOL SUCC50 MG PO; +PERCOCET 5-3251 EACH PO; +SENNA S TABLET1 EACH PO; +TAMSULOSIN PO; +TYLENOL325 MG PO; +ULTRAM 50MG50 MG PO; +prednisolone OS
[2024-06-22 17:44] VITALS: TEMP 97.9
[2024-06-22 19:00] VITALS: PULSE 74; RESP 18
[2024-06-22 19:13] LABS: BASOPHILS % 0.3 % (0.0-1.0); EOSINOPHILS # (AUTO) 0.1 (0.0-0.4); EOSINOPHILS % 0.7 % (0.0-6.0); HEMATOCRIT 33.8 % (38.2-49.6); HEMOGLOBIN 10.9 g/dL (14.0-18.0); LYMPHOCYTES # (AUTO) 0.9 (1.0-3.2); LYMPHOCYTES % 6.5 % (18.0-39.1); MEAN CORPUSCULAR HEMOGLOBIN 32.6 pg (28-32); MEAN CORPUSCULAR HGB CONC 32.2 g/dL (31-35); MEAN CORPUSCULAR VOLUME 101.2 fL (81-99); MONOCYTES # (AUTO) 1.2 (0.2-0.8); MONOCYTES % 8.6 % (4.4-11.3); NEUTROPHILS # (AUTO) 10.9 (2.1-6.9); NEUTROPHILS % 80.9 % (38.7-80.0); PLATELET COUNT 423 x10e3/uL (140-360); RED BLOOD COUNT 3.34 x10e6/uL (4.3-5.7); RED CELL DISTRIBUTION WIDTH 15.6 % (11.7-14.4); WHITE BLOOD COUNT 13.45 x10e3/uL (4.8-10.8)
[2024-06-22 19:29] LABS: ALBUMIN 3.1 g/dL (3.5-5.0); ALBUMIN/GLOBULIN RATIO 1.1 (0.8-2.0); BILIRUBIN,TOTAL 0.8 mg/dL (0.2-1.2); CALCIUM 8.9 mg/dL (8.4-10.2); CREATININE, SERUM 0.71 mg/dL (0.72-1.25)
[2024-06-22 19:35] LABS: TROPONIN I 0.002 ng/mL (0-0.300)
[2024-06-22 20:00] VITALS: O2SAT 97
[2024-06-22 20:46] VITALS: BP 149/94; PULSE 65; RESP 18; TEMP 98.6
== END 2024-06-22 20:48 | disposition home or self-care (01) ==
LOC: ER 18:05
DX: S00.83XA Contusion of other part of head, initial encounter (principal); W01.0XXA Fall on same level from slipping, tripping and stumbling without subsequent striking against object, initial encounter; Y92.89 Other specified places as the place of occurrence of the external cause; E11.65 Type 2 diabetes mellitus with hyperglycemia; I10 Essential (primary) hypertension; I50.9 Heart failure, unspecified; E78.5 Hyperlipidemia, unspecified
CPT/HCPCS: 36415; 70450; 71045; 72125; 80053; 82550; 83690; 83880; 84484; 85025; 99284

== ENCOUNTER 2024-07-14 14:15 | Observation (INO) | payer MEDICARE ==
[~2024-07-14] VITALS: Ht 165.1 cm; Wt 95.3 kg
[2024-07-14 15:40] LABS: BASOPHILS % 0.5 % (0.0-1.0); EOSINOPHILS # (AUTO) 0.5 (0.0-0.4); EOSINOPHILS % 6.9 % (0.0-6.0); HEMATOCRIT 33.2 % (38.2-49.6); HEMOGLOBIN 10.3 g/dL (14.0-18.0); LYMPHOCYTES # (AUTO) 1.1 (1.0-3.2); LYMPHOCYTES % 17.3 % (18.0-39.1); MEAN CORPUSCULAR HEMOGLOBIN 31.6 pg (28-32); MEAN CORPUSCULAR VOLUME 101.8 fL (81-99); MONOCYTES % 15.6 % (4.4-11.3); NEUTROPHILS # (AUTO) 3.8 (2.1-6.9); NEUTROPHILS % 58.5 % (38.7-80.0); PLATELET COUNT 409 x10e3/uL (140-360); RED BLOOD COUNT 3.26 x10e6/uL (4.3-5.7); RED CELL DISTRIBUTION WIDTH 14.8 % (11.7-14.4); WHITE BLOOD COUNT 6.48 x10e3/uL (4.8-10.8)
[2024-07-14 16:14] LABS: ALBUMIN 2.9 g/dL (3.5-5.0); ANION GAP 12.8 mmol/L (8-16); BILIRUBIN,TOTAL 0.5 mg/dL (0.2-1.2); CALCIUM 9.4 mg/dL (8.4-10.2); CREATININE, SERUM 0.76 mg/dL (0.72-1.25); POTASSIUM 3.8 mmol/L (3.5-5.1); TOTAL PROTEIN 5.9 g/dL (6.5-8.1)
[2024-07-14 16:22] LABS: TROPONIN I 0.011 ng/mL (0-0.300)
[2024-07-14] MEDS ORDERED: ONDANSETRON HCL INJ 2MG/ML 2ML 2 MG/ML VIAL IV PRN (16:45)
[2024-07-14] MEDS ORDERED: SODIUM CHLORIDE FLUSH 10 ML SYR INJ PRN (16:45)
[2024-07-14 17:00] VITALS: PULSE 87; RESP 15; TEMP 98.1
[2024-07-14] MEDS: BUMETANIDE INJ 0.25MG/ML 4ML VIAL IV ONE (17:25)
[2024-07-14 21:03] VITALS: BP 108/65; PULSE 80; RESP 19; TEMP 98.6; O2SAT 99
[2024-07-14 21:41] VITALS: BP 108/65; PULSE 80; RESP 19; TEMP 98.6; O2SAT 99
[2024-07-14 21:42] VITALS: BP 108/65; PULSE 80; RESP 19; TEMP 98.6; O2SAT 99
[2024-07-14 21:46] VITALS: BP 108/65; PULSE 80; RESP 19; TEMP 98.6; O2SAT 99
[2024-07-15] MEDS ORDERED: BUMETANIDE1 MG PO (00:53)
[2024-07-15] MEDS ORDERED: CYCLOBENZAPRIN7.5 MG PO (00:53)
[2024-07-15] MEDS ORDERED: IBUPROFEN600 MG PO (00:53)
[2024-07-15 03:16] VITALS: BP 104/58; PULSE 73; RESP 20; TEMP 97.8; O2SAT 98
[2024-07-15 06:14] LABS: BASOPHILS % 0.7 % (0.0-1.0); EOSINOPHILS # (AUTO) 0.4 (0.0-0.4); HEMATOCRIT 29.6 % (38.2-49.6); HEMOGLOBIN 9.3 g/dL (14.0-18.0); LYMPHOCYTES % 17.8 % (18.0-39.1); MEAN CORPUSCULAR HEMOGLOBIN 31.7 pg (28-32); MEAN CORPUSCULAR HGB CONC 31.4 g/dL (31-35); MONOCYTES # (AUTO) 0.9 (0.2-0.8); MONOCYTES % 14.9 % (4.4-11.3); NEUTROPHILS # (AUTO) 3.5 (2.1-6.9); NEUTROPHILS % 59.6 % (38.7-80.0); PLATELET COUNT 369 x10e3/uL (140-360); RED BLOOD COUNT 2.93 x10e6/uL (4.3-5.7); RED CELL DISTRIBUTION WIDTH 14.9 % (11.7-14.4); WHITE BLOOD COUNT 5.83 x10e3/uL (4.8-10.8)
[2024-07-15 06:49] LABS: ALBUMIN 2.6 g/dL (3.5-5.0); ANION GAP 13.6 mmol/L (8-16); BILIRUBIN,TOTAL 0.4 mg/dL (0.2-1.2); CALCIUM 9.2 mg/dL (8.4-10.2); CREATININE, SERUM 0.68 mg/dL (0.72-1.25); POTASSIUM 3.6 mmol/L (3.5-5.1); TOTAL PROTEIN 5.3 g/dL (6.5-8.1)
[2024-07-15 06:55] LABS: TROPONIN I 0.009 ng/mL (0-0.300)
[2024-07-15] MEDS ORDERED: HYDROCODON-ACE1 EAC9 PO (08:46)
[2024-07-15 08:51] VITALS: BP 104/58; PULSE 73; RESP 20; TEMP 97.8; O2SAT 98
[2024-07-15] MEDS: FUROSEMIDE INJ 10 MG/ML 4 ML VIAL IV ONE (09:47)
[2024-07-15] MEDS: POTASSIUM CHLORIDE 20 MEQ TAB CR PO ONE (10:07)
[2024-07-15 11:59] VITALS: BP 100/79; PULSE 72; RESP 16; TEMP 98.2; O2SAT 98
== END 2024-07-15 13:45 | disposition home or self-care (01) ==
LOC: ER 15:01 → ERHOLD 16:40 → MED/SURG 18:10
PROVIDERS: ADMIT Internal Medicine; ATTEND Internal Medicine
DX: I11.0 Hypertensive heart disease with heart failure (principal); I50.23 Acute on chronic systolic (congestive) heart failure; I95.9 Hypotension, unspecified; E78.5 Hyperlipidemia, unspecified; E11.9 Type 2 diabetes mellitus without complications; Z79.84 Long term (current) use of oral hypoglycemic drugs; N40.0 Benign prostatic hyperplasia without lower urinary tract symptoms; Z79.899 Other long term (current) drug therapy
CPT/HCPCS: 36415 ×2; 71045; 73080; 80053 ×2; 82550 ×2; 83880; 84484 ×2; 85025 ×2; 93005; 93971; 99284; G0378 ×2; J1940